=== PATIENT | female | born 1955 | race Caucasian/White ===

== ENCOUNTER 2017-01-26 11:35 | Emergency (ER) | payer OTHER ==
[~2017-01-26] VITALS: Ht 167.6 cm; Wt 63.5 kg
[2017-01-26 11:46] VITALS: BP 140/85
== END 2017-01-26 13:05 | disposition admitted as inpatient to this hospital (09) ==
LOC: ERH 11:35
DX: Z53.21 Procedure and treatment not carried out due to patient leaving prior to being seen by health care provider (principal)

== ENCOUNTER 2017-01-29 14:30 | Emergency (ER) | payer OTHER ==
[2017-01-29] MEDS ORDERED: QUETIAPINE FUM100 M1 PO (14:50)
[2017-01-29] MEDS ORDERED: VIBRAMYCIN100 MG PO (14:51)
--- NOTE | 2017-01-29 15:24 | ED PSYCHIATRIC COMPLAINT ---
History of Present Illness General Chief Complaint: ETOH/Drug Related Complaint Stated Complaint: BIBA ETOH Source: patient Exam Limitations: no limitations Allergies Coded Allergies: No Known Allergies (01/26/17) Reconcile Medications Doxycycline Hyclate (Vibramycin) 100 MG CAPSULE 1 CAP PO BID ANTIBIOTIC, INFECTION (Reported) Quetiapine Fumarate 100 MG TABLET 1 TAB PO QPM SLEEP HELP (Reported) Triage Note: PT BIBA FROM [facility] FOR ETOH. PT REPORTS SHE HAD 4 VODKA DRINKS TODAY. Triage Nurses Notes Reviewed? yes HPI: Patient presents for evaluation of alcohol intoxication. Patient is currently living at the [facility] and apparently drank a pint of vodka today prompting the staff to contact the paramedics for an emergency department evaluation. The patient is somewhat belligerent in providing history. She states that she lost her her son and her daughter in the last 3 months. SHe admits to alcoholism. She denies suicide ideation. Patient states that she is more or less a daily drinker and drinks whenever alcohol she can whenever she can get it. (GERA AQUINO,MAGNO Lux) Vital Signs & Intake/Output Vital Signs & Intake/Output . (LAILA HOLLOWAY MD) Past History Medical History Any Pertinent Medical History? see below for history Musculoskeletal: spinal stenosis Other Medical Hx: Alcoholic Surgical History Surgical History: non-contributory Psychosocial History What is your primary language [place] Family History Hx Contributory? No (GERA AQUINO,MAGNO Lux) Review of Systems Review of Systems Constitutional: Reports: no symptoms. EENTM: Reports: no symptoms. Respiratory: Reports: no symptoms. Cardiovascular: Reports: no symptoms. GI: Reports: no symptoms. Genitourinary: Reports: no symptoms. Musculoskeletal: Reports: no symptoms. Skin: Reports: no symptoms. Neurological/Psychological: Reports: no symptoms. Hematologic/Endocrine: Reports: no symptoms. Immunologic/Allergic: Reports: no symptoms. All Other Systems: Reviewed and Negative (GERA AQUINO,MAGNO Lux) Physical Exam Physical Exam General Appearance: SEE BELOW Neurological/Psychiatric: SEE BELOW Comments: General: Alert, calm, cooperative, clinically intoxication, etoh like odor Head: Normocephalic, atraumatic Eyes: Normal inspection, no nystagmus, EOMI Ears: Normal inspection Nose: Normal inspection Throat: Moist mucosa Neck: Supple, no goiter Heart: Regular rate and rhythm, no murmurs rubs or gallops Lungs: Clear to auscultation bilaterally with good air entry Abdomen: Soft nontender nondistended, normal bowel sounds Chest: Nontender Extremities: Normal range of motion grossly, no tremors present, no cyanosis clubbing or edema of the upper extremities Neurologic: cranial nerves II through XII grossly intact, speech clear, gait normal Psychiatric: No apparent delusions or hallucinations, no pressured speech or thought blocking SAD PERSONS Done? patient not suicidal (GERA AQUINO,MAGNO Lux) Progress Differential Diagnosis: drug intoxication Plan of Care: Orders Procedure Date/time Status Regular Diet 01/30 B Active Comments: 01/29/2017 7:20:09 PM patient signed out to Dr. Holloway. Intoxicated per breathalyzer. (GERA AQUINO,MAGNO Lux) Comments: Sobriety obtained (LAILA HOLLOWAY MD) Departure Departure Condition: Stable Referrals: PATIENT HAS NO PRIMARY CARE DR (PCP/Family) (MAGNO BOSS MD) Departure Time of Disposition: 2027 Disposition: HOME OR SELF CARE Clinical Impression Primary Impression: Alcohol intoxication Qualifiers: Complication of substance-induced condition: with unspecified complication Qualified Code: F10.129 - Alcohol abuse with intoxication, unspecified Departure Forms: General Discharge Information (LAILA HOLLOWAY MD)
== END 2017-01-29 20:55 ==
LOC: ERH 14:30
DX: F10.129 Alcohol abuse with intoxication, unspecified (principal)